=== PATIENT | female | born 1990 | race Caucasian/White ===

== ENCOUNTER 2020-08-11 09:41 | Outpatient (CLI) | payer SELFPAY ==
--- NOTE | 2020-08-11 10:09 | XRAY Report ---
PROCEDURE: Ankle 3 View LT INDICATIONS: LEFT FOOT/ANKLE PAIN TECHNIQUE: 3 views of the ankle were acquired. COMPARISON: None FINDINGS: Bones: No fractures or dislocations. Ankle mortise is normally aligned. No suspicious bony lesions . Soft tissues: No tibiotalar joint effusion. Achilles tendon appears normal. IMPRESSION: No evidence acute bony abnormality of the left ankle. Reviewed by: Kory Pino MD on 08/11/2020 10:08 AM PDT Approved by: Kory Pino MD on 08/11/2020 10:08 AM PDT Station ID: [id number]
--- NOTE | 2020-08-11 10:10 | XRAY Report ---
PROCEDURE: Foot 3 View LT INDICATIONS: LEFT FOOT/ANKLE PAIN TECHNIQUE: 3 views of the foot were acquired. COMPARISON: None FINDINGS: Bones: Mild hallux valgus and bunion. No fractures or dislocations. No suspicious bony lesions. Soft tissues: No tibiotalar joint effusion. Achilles tendon appears normal. IMPRESSION: Mild hallux valgus and bunion. No evidence of acute bony abnormality of the left foot. Reviewed by: Kory Pino MD on 08/11/2020 10:09 AM PDT Approved by: Kory Pino MD on 08/11/2020 10:09 AM PDT Station ID: [id number]
== END 2020-08-11 09:42 | disposition home or self-care (01) ==
LOC: DI.S 09:41
PROVIDERS: ATTEND Physician Assistant Medical
DX: M20.12 Hallux valgus (acquired), left foot (principal); M21.612 Bunion of left foot

== ENCOUNTER 2021-07-21 13:44 | Emergency (ER) | payer MEDICAID ==
[2021-07-21 14:23] LABS: BASOPHILS % (AUTO) 0.8 %; EOSINOPHILS % (AUTO) 0.8 %; HCT - HEMATOCRIT 44.9 % (37.0-47.0); HGB - HEMOGLOBIN 15.3 g/dL (12.0-16.0); LYMPHOCYTES # (AUTO) 0.6 10^3/uL (1.5-3.5); LYMPHOCYTES % (AUTO) 15.5 %; MEAN CORPUSCULAR HEMOGLOBIN 31.9 pg (27.0-31.0); MEAN CORPUSCULAR HGB CONC 34.1 g/dL (32.0-36.0); MEAN CORPUSCULAR VOLUME 93.5 fL (81.0-99.0); MEAN PLATELET VOLUME 10.2 fL (7.9-10.8); MONOCYTES # (AUTO) 0.3 10^3/uL (0.0-1.0); MONOCYTES % (AUTO) 8.1 %; NEUTROPHILS # (AUTO) 2.9 10^3/uL (1.5-6.6); NEUTROPHILS % (AUTO) 74.5 %; PLT - PLATELET COUNT 277 10^3/uL (130-450); RED CELL DISTRIBUTION WIDTH 11.4 % (12.0-15.0); WHITE BLOOD COUNT 3.9 x10^3/uL (4.8-10.8)
[2021-07-21 14:36] LABS: ALBUMIN 3.9 g/dL (3.2-5.5); ALBUMIN/GLOBULIN RATIO 1.1 (1.0-2.2); BILIRUBIN,TOTAL 0.2 mg/dL (0.2-1.0); CALCIUM 8.8 mg/dL (8.5-10.3); CREATININE 0.6 mg/dL (0.4-1.0); POTASSIUM 3.1 mmol/L (3.5-5.0); TOTAL PROTEIN 7.3 g/dL (6.7-8.2)
--- NOTE | 2021-07-21 15:06 | ED Physician Documentation ---
PD HPI NVD - Stated complaint Stated Complaint: VOMITING,DIARRHEA +PREG - Chief complaint Chief Complaint: Abd Pain - History obtained from History obtained from: Patient - History of Present Illness Timing - onset: Today (Onset of last evening of nausea and vomiting with subsequent copious watery diarrhea. Denies blood in her vomit nor stool. Feeling weak and lightheaded today. She is 12 weeks . Denies vaginal bleeding. Mild lower abdominal cramping.), Last night Timing - duration: Days (1) Timing - details: Abrupt onset, Still present Associated symptoms: Abdominal pain (mild upper abd cramping.), Loss of appetite. No: Fever, Near syncope / syncope (but feeling lightheaded.) Contributing factors: Sick contact (Her daughter had some nausea and vomiting mildly 4 to 5 days ago and is better after day.), Other (She did home COVID rapid antigen test that was negative.). No: Bad food Improved by: No: Vomiting Worsened by: Eating Similar symptoms before: Has not had sx before Recently seen: Not recently seen Review of Systems Constitutional: reports: Myalgias. denies: Fever, Chills Nose: denies: Rhinorrhea / runny nose, Congestion Throat: denies: Sore throat Respiratory: denies: Cough : denies: Dysuria, Discharge, Vaginal bleeding PD PAST MEDICAL HISTORY - Past Medical History Cardiovascular: None Respiratory: None [employer]: Other (12 weeks ) - Past Surgical History Past Surgical History: No - Present Medications Home Medications: Ambulatory Orders Medication Instructions Recorded Confirmed Loperamide HCl [Imodium A-D] 2 mg PO QID PRN #12 tablet 07/21/21 Ondansetron Odt [Zofran] 4 mg TL Q6H PRN #15 tablet 07/21/21 - Allergies Allergies/Adverse Reactions: Allergies Allergy/AdvReac Type Severity Reaction Status Date / Time Penicillins Allergy Intermediate Edema Verified 07/21/21 14:10 - Social History Does the pt smoke?: No Smoking Status: Never smoker Does the pt drink ETOH?: Yes Does the pt have substance abuse?: No - Immunizations Immunizations are current?: No - POLST Patient has POLST: No PD ED PE NORMAL - Vitals Vital signs reviewed: Yes - General General: Alert and oriented X 3, Well developed/nourished - HEENT HEENT: Pharynx benign. No: Moist mucous membranes - Neck Neck: Supple, no meningeal sign, No adenopathy - Cardiac Cardiac: RRR, No murmur - Respiratory Respiratory: Clear bilaterally - Abdomen Abdomen: Normal bowel sounds, Soft, Non distended, No organomegaly, Other (Mild periumbilical to upper mid abdomen tenderness without any percussion or rebound tenderness.) Results - Vitals Vitals: Vital Signs - 24 hr 07/21/21 07/21/21 07/21/21 14:10 16:12 18:00 Temperature 37.1 C Heart Rate 107 H 84 99 Respiratory 19 19 18 Rate Blood Pressure 123/67 116/76 110/67 O2 Saturation 97 100 100 Oxygen O2 Source Room air - Labs Labs: Laboratory Tests 07/21/21 07/21/21 07/21/21 14:18 14:18 14:26 WBC 3.9 L RBC 4.80 Hgb 15.3 Hct 44.9 MCV 93.5 MCH 31.9 H MCHC 34.1 RDW 11.4 L Plt Count 277 MPV 10.2 Neut # (Auto) 2.9 Lymph # (Auto) 0.6 L [place] # (Auto) 0.3 Eos # (Auto) 0.0 Baso # (Auto) 0.0 Absolute Nucleated RBC 0.00 Nucleated RBC % 0.0 Sodium 136 Potassium 3.1 L Chloride 103 Carbon Dioxide 22 Anion Gap 11.0 BUN 6 Creatinine 0.6 Estimated GFR (MDRD) 118 Glucose 100 Calcium 8.8 Total Bilirubin 0.2 AST 33 ALT 27 Alkaline Phosphatase 40 L Total Protein 7.3 Albumin 3.9 Globulin 3.4 Albumin/Globulin Ratio 1.1 Lipase 32 Urine Color YELLOW Urine Clarity CLEAR Urine pH 6.0 Ur Specific [place] >=1.030 H Urine Protein NEGATIVE Urine Glucose (UA) NEGATIVE Urine Ketones 15 H Urine Occult Blood NEGATIVE Urine Nitrite NEGATIVE Urine Bilirubin NEGATIVE Urine Urobilinogen 0.2 (NORMAL) Ur Leukocyte Esterase NEGATIVE Ur Microscopic Review NOT INDICATED Urine Culture Comments NOT INDICATED Urine HCG, Qual POSITIVE PD MEDICAL DECISION MAKING - ED course Complexity details: reviewed results (Bedside ultrasound showed normal with heart motion and movement. Amniotic fluid volume appeared appropriate. Brief look at gallbladder appeared normal as well without any stones or wall thickening.), re-evaluated patient (feeling improved and able to take fluids/crackers. She does not hae nausea now. No cramps/bleeding. ), considered differential, d/w patient Departure - Departure Disposition: 01 Home, Self Care Clinical Impression: Nausea vomiting and diarrhea, Dehydration Qualifiers: Weeks of gestation: 12 weeks Qualified Code(s): Z3A.12 - 12 weeks gestation of Condition: Stable Record reviewed to determine appropriate education?: Yes Instructions: ED Gastroenteritis Viral Follow-Up: Dottie Butterfield MD [Primary Care Provider] - Prescriptions: Loperamide HCl [Imodium A-D] 2 mg PO QID PRN #12 tablet PRN Reason: Diarrhea Ondansetron Odt [Zofran] 4 mg TL Q6H PRN #15 tablet PRN Reason: Nausea / Vomiting Comments: Small frequent fluids. [place] food initially. Progress as tolerated. I presume this is a viral gastroenteritis and would last just a couple of days. You have received IV fluids here to try to rehydrate you. We can continue with the ondansetron every 4-6 hours if needed for nausea. For a limited time can also use Imodium 4 times a day if needed for the diarrhea. Add Tylenol every 4-6 hours if needed for cramps or pains. Your bedside ultrasound showed a normal-appearing fetus with good to heart activity and movement. Recheck if any unusual pains vaginal bleeding or other concerns. Recheck if not improved well over the next day or 2. Return if worse. I transmitted your prescriptions to [facility] in [place]. Discharge Date/Time: 07/21/21 18:38
[2021-07-21 15:26] LABS: BILIRUBIN,URINE NEGATIVE (NEGATIVE); GLUCOSE, URINE (UA) NEGATIVE (NEGATIVE); KETONES,URINE (UA) 15 mg/dL (NEGATIVE); LEUKOCYTE ESTERASE, URINE NEGATIVE (NEGATIVE); NITRITE,URINE NEGATIVE (NEGATIVE); OCCULT BLOOD,URINE NEGATIVE (NEGATIVE); PROTEIN,URINE NEGATIVE (NEGATIVE); UROBILINOGEN,URINE 0.2 (NORMAL) E.U./dL (NORMAL)
[2021-07-21 15:29] LABS: CLARITY,URINE CLEAR (CLEAR)
[2021-07-21] MEDS ORDERED: KETOROLAC 15 MG/ML VIAL IVP STA (15:29)
[2021-07-21] MEDS ORDERED: ONDANSETRON 4 MG/2 ML VIAL IVP STA (15:29)
[2021-07-21] MEDS ORDERED: SODIUM CHLORIDE 0.9% 1,000 ML IV STA (15:29)
[2021-07-21] MEDS ORDERED: LOPERAMIDE 2 MG CAPSULE PO STA (15:29)
[2021-07-21 15:30] LABS: HCG UR QUAL POSITIVE
[2021-07-21] MEDS ORDERED: LACTATED RINGERS 1,000 ML IV STA (15:30)
[2021-07-21 18:14] VITALS: BP 110/67
[2021-07-21] MEDS ORDERED: ONDANSETRON ODT 4 MG Prepack 2 TL PRN (18:28)
== END 2021-07-21 18:38 | disposition home or self-care (01) ==
LOC: ED 13:44
DX: O26.891 Other specified pregnancy related conditions, first trimester (principal); R11.2 Nausea with vomiting, unspecified; R19.7 Diarrhea, unspecified; O99.281 Endocrine, nutritional and metabolic diseases complicating pregnancy, first trimester; E86.0 Dehydration; Z3A.12 12 weeks gestation of pregnancy
CPT/HCPCS: 36415; 80053; 81003; 81025; 83690; 85025; 96361; 96374; 99282; 99283; A9270; J7120; 81001; 87086

== ENCOUNTER 2021-12-08 18:17 | Emergency (ER) | payer MEDICAID ==
--- OUTSIDE RECORDS SUMMARY | 2021-12-08 18:23 | EXTERNAL MEDICAL SUMMARY RPT | Continuity of Care Document ---
:1990 Author Organization [facility] Address [address] [place] [address] Phone Allergies No information. Encounters No information. Functional Status No information. Immunizations No information. Medications No information. Problems No information. Procedures No information. Results/Labs test date author facility value unit interpret ation Result panel 1 (unknown) (no (unknown) (unknown) (no value) (units (unk nown) date) unknown) (unknown) (no (unknown) (unknown) [address] [place] [address] (units (unknown) date) unknown) (unknown) (no (unknown) (unknown) [place], [place] (units ( unknown) date) [id number] unknown) (unknown) (no (unknown) (unknown) [facility] (units (unknown) date) unknown) (unknown) (no (unknown) (unknown) Signed (units (unkno wn) date) unknown) (unknown) (no (unknown) (unknown) Ultrasound (units (unk nown) date) Report unknown) (unknown) (no (unknown) (unknown) (no value) (units (unk nown) date) unknown) (unknown) (no (unknown) (unknown) 09/26/21 (units (unkno wn) date) unknown) (unknown) (no (unknown) (unknown) 7 mm in 3rd (units (un known) date) trimester. unknown) (unknown) (no (unknown) (unknown) Abdominal (units (unkn own) date) circumference: unknown) 15.9 cm (unknown) (no (unknown) (unknown) Amniotic fluid (units (unknown) date) index: 14.9 cm, unknown) normal range is 5-24 cm. (unknown) (no (unknown) (unknown) Anatomic survey: (units (unknown) date) 396g unknown) (unknown) (no (unknown) (unknown) Approved by: (units (u nknown) date) Wellington Barrios M.D. unknown) on 09/26/2021 at 15:06 (unknown) (no (unknown) (unknown) Biparietal (units (unk nown) date) diameter: 4.6cm unknown) (unknown) (no (unknown) (unknown) Bladder: Normal (units (unknown) date) in size. unknown) (unknown) (no (unknown) (unknown) COMPARISON: (units (un known) date) None. unknown) (unknown) (no (unknown) (unknown) Cord: 3-vessel (units (unknown) date) cord has unknown) orthotopic insertion. (unknown) (no (unknown) (unknown) Diaphragm: (units (unk nown) date) Diaphragm is unknown) intact. (unknown) (no (unknown) (unknown) Dictated by: (units (u nown) date) Wellington Barrios M.D. unknown) on 09/26/2021 at 14:58 (unknown) (no (unknown) (unknown) Endovaginal (units (un known) date) scanning: not unknown) performed (unknown) (no (unknown) (unknown) Estimated date (units (unknown) date) of delivery (RAINA) unknown) from first dating scan (this study): 02/08/2022 (unknown) (no (unknown) (unknown) Estimated (units (unknown) date) weight and unknown) percentile: 396g (unknown) (no (unknown) (unknown) Extremities: All (units (unknown) date) 4 extremities unknown) identified. (unknown) (no (unknown) (unknown) FINDINGS: (units (unkn own) date) unknown) (unknown) (no (unknown) (unknown) Face: Nose and (units (unknown) date) lips, facial unknown) profile are normal. (unknown) (no (unknown) (unknown) Femur length: (units ( unknown) date) 3.0 cm unknown) (unknown) (no (unknown) (unknown) (units (unkno wn) date) biometrics: unknown) (unknown) (no (unknown) (unknown) heart (units (un known) date) rate: 162 beats unknown) per minute. (unknown) (no (unknown) (unknown) General: A (units (unk nown) date) single living unknown) intrauterine gestation is present. (unknown) (no (unknown) (unknown) Head (units (unkno wn) date) circumference: unknown) 13.1 cm (unknown) (no (unknown) (unknown) Heart: (units (unkno wn) date) 4-chambered heart unknown) is present, with normal ventricular outflow tracts. (unknown) (no (unknown) (unknown) IMPRESSION: (units (un known) date) Intrauterine unknown) living gestation identified at 20 weeks and 5 days (unknown) (no (unknown) (unknown) INDICATIONS: (units (u nknown) date) ANATOMY SCAN unknown) (unknown) (no (unknown) (unknown) Kidneys: No (units (un known) date) unknown) hydronephrosis. Normal is less than 5 mm in 2nd trimester, (unknown) (no (unknown) (unknown) LMP unknown (units (un known) date) unknown) (unknown) (no (unknown) (unknown) Maternal (units (unkno wn) date) cervical canal: unknown) 4.9cm long. Normal lower limit is 2.5 cm. (unknown) (no (unknown) (unknown) Neuro: (units (unkno wn) date) Ventricles are unknown) non-dilated at less than 10 mm. Cisterna magna is (unknown) (no (unknown) (unknown) Nuchal skin (units (un known) date) fold: Normal at unknown) less than 6 mm between 14-21 weeks gestational (unknown) (no (unknown) (unknown) OUTSIDE/PRIOR (units ( unknown) date) DATING DATA: unknown) (unknown) (no (unknown) (unknown) Placenta: (units (unkn own) date) Placental unknown) position is posterior , without previa (unknown) (no (unknown) (unknown) Presentation: (units ( unknown) date) vertex unknown) (unknown) (no (unknown) (unknown) Real-time (units (unkn own) date) scanning was unknown) performed of the fetus, with image documentation and (unknown) (no (unknown) (unknown) Spine: No (units (unkn own) date) evidence for unknown) spina bifida. (unknown) (no (unknown) (unknown) Stomach: (units (unkno wn) date) Left-sided unknown) stomach is present. (unknown) (no (unknown) (unknown) TECHNIQUE: (units (unk nown) date) unknown) (unknown) (no (unknown) (unknown) estimated (units (unkn own) date) gestational age: unknown) 20 weeks and 5 days. (unknown) (no (unknown) (unknown) measurements. (units ( unknown) date) unknown) (unknown) (no (unknown) (unknown) mm. Cerebellum (units (unknown) date) is normal in size unknown) and morphology. (unknown) (no (unknown) (unknown) this ultrasound (units (unknown) date) biometry. Routine unknown) anatomic survey is normal. (unknown) (no (unknown) (unknown) [id number] (units (unkno wn) date) unknown) (unknown) (no (unknown) (unknown) Accession (units (unkn own) date) Number: unknown) [id number] (unknown) (no (unknown) (unknown) Age/Sex: 31 / F (units (unknown) date) Date of Service: unknown) (unknown) (no (unknown) (unknown) : 1990 (units (unknown) date) Acct:[id number] unknown) (unknown) (no (unknown) (unknown) Loc: [place]units (unkno wn) date) unknown) (unknown) (no (unknown) (unknown) Ordering (units (unkno wn) date) Provider: unknown) Aurora Enciso (unknown) (no (unknown) (unknown) PROCEDURE: US OB (units (unknown) date) >= 14 WEEKS FETUS unknown) (unknown) (no (unknown) (unknown) Patient: (units (unkno wn) date) Barry Aguilar unknown) MR#: [id number] (unknown) (no (unknown) (unknown) Procedure: US OB (units (unknown) date) >= 14 weeks Fetus unknown) (unknown) (no (unknown) (unknown) age. (units (unkno wn) date) unknown) (unknown) (no (unknown) (unknown) based on (units (unkno wn) date) unknown) (unknown) (no (unknown) (unknown) biometric (units (unkn own) date) unknown) (unknown) (no (unknown) (unknown) less than (units (unkn own) date) unknown) (unknown) (no (unknown) (unknown) normal at 3-11 (units (unknown) date) unknown) Social History No information. Vital Signs No information.
--- NOTE | 2021-12-08 20:17 | ED Physician Documentation ---
PD HPI DYSPNEA - Stated complaint Stated Complaint: SOA/32WKS - Chief complaint Chief Complaint: Resp - History obtained from History obtained from: Patient - History of Present Illness Timing - onset: How many days ago (3) Timing - details: Gradual onset Pain level now: 0 Associated symptoms: No: Fever (Tmax 99.8) Recently seen: Not recently seen - Additional information Additional information: chief complaint of dyspnea. She says she has a "head cold" (per patient) with sore throat, generalized myalgias and malaise. Sinus congestion although this has been improving. Symptom onset 3 days ago. Patient is 32 weeks , . Tmax 99.8. she has taken multiple COVID tests at home , results have been negative. She has has seasonal allergies for which she uses albuterol MDI, but only occasionally for a few weeks /months of the year. Review of Systems Constitutional: denies: Fever (Tmax 99.8), Chills, Sweats Throat: reports: Sore throat Cardiac: denies: Chest pain / pressure Respiratory: reports: Dyspnea, Cough, Wheezing. denies: Hemoptysis GI: reports: Reviewed and negative : reports: Now EGMonster (32 weeks). denies: Dysuria, Frequency PD PAST MEDICAL HISTORY - Past Medical History Past Medical History: Yes Cardiovascular: None Respiratory: Asthma, Pneumonia, Other UNHAIRER: Other Other Past Medical History: bronchitis - Past Surgical History Past Surgical History: No - Present Medications Home Medications: Ambulatory Orders Medication Instructions Recorded Confirmed Loperamide HCl [Imodium A-D] 2 mg PO QID PRN #12 tablet 07/21/21 Ondansetron Odt [Zofran] 4 mg TL Q6H PRN #15 tablet 07/21/21 Albuterol Sulf [Ventolin Hfa 1 - 2 puffs INH Q4HR PRN #1 each 12/08/21 Inhaler] Azithromycin See Taper PO DAILY #6 tablet 12/08/21 predniSONE [Deltasone] 40 mg PO DAILY 4 Days #8 tablet 12/08/21 - Allergies Allergies/Adverse Reactions: Allergies Allergy/AdvReac Type Severity Reaction Status Date / Time Penicillins Allergy Intermediate Edema Verified 12/08/21 18:31 - Social History Does the pt smoke?: No Smoking Status: Never smoker Does the pt drink ETOH?: Yes Does the pt have substance abuse?: No - Immunizations Immunizations are current?: No - POLST Patient has POLST: No PD ED PE NORMAL - Vitals Vital signs reviewed: Yes - General General: Alert and oriented X 3, No acute distress, Well developed/nourished - HEENT HEENT: Pharynx benign - Neck Neck: Supple, no meningeal sign - Cardiac Cardiac: RRR, No murmur - Respiratory Respiratory: No respiratory distress - Abdomen Abdomen: Soft, Non tender PD ED PE EXPANDED - Respiratory Respiratory: Wheezing (expiratory wheezing all lung maher) Results - Vitals Vitals: Oxygen O2 Source Room air - EKG (time done) No standard instances Rate: Rate (enter#) (99) Rhythm: NSR [place]: Normal Intervals: Normal [place] QRS: Normal Ischemia: Normal ST segments, T wave inversion (II, III, aVF), Other (flat T V3- V6) PD MEDICAL DECISION MAKING - ED course Complexity details: re-evaluated patient, considered differential, d/w patient ED course: given duoneb and reports feeling much improved with this. On reexam she has residual end-expiratory wheezing. Prescriptions submitted to her pharmacy of choice for albuterol MDI as well as prednisone and zithromax. We discussed the latter two medications, including option for starting these in ED but patient prefers to use the prednisone only if she is not responding adequately to the albuterol MDI. She is encouraged to return if worse, but should she develop increasing productive cough or develop fever 100.4 or higher, she has the option of starting the azithromycin Departure - Departure Disposition: 01 Home, Self Care Clinical Impression: Bronchitis with bronchospasm Condition: Good Instructions: ED Bronchitis Asthmatic Follow-Up: Dottie Butterfield MD [Primary Care Provider] - Prescriptions: Albuterol Sulf [Ventolin Hfa Inhaler] 1 - 2 puffs INH Q4HR PRN #1 each PRN Reason: Shortness Of Air/Wheezing Azithromycin See Taper PO DAILY #6 tablet predniSONE [Deltasone] 40 mg PO DAILY 4 Days #8 tablet Comments: Prescriptions have been electronically submitted to [facility] in [place]. Albuterol inhaler to be used every four hours as needed for difficulty breathing. I also prescribed an antibiotic. As we discussed, you can start the antibiotic if your symptoms worsen and/or if you develop a fever of 100.4 or higher. I also prescribed a steroid (prednisone), which you can start and take as prescribed if your symptoms worsen and not responding to the inhaler alone. Discharge Date/Time: 12/08/21 22:49
[2021-12-08] MEDS ORDERED: IPRATROPIUM/ALBUTEROL 3 ML NEB INH STA (20:55)
[2021-12-08 22:49] VITALS: BP 109/62
== END 2021-12-08 22:49 | disposition home or self-care (01) ==
LOC: ED 18:17
DX: O99.513 Diseases of the respiratory system complicating pregnancy, third trimester (principal); J20.9 Acute bronchitis, unspecified; Z3A.32 32 weeks gestation of pregnancy
CPT/HCPCS: 93005; 99283

== ENCOUNTER 2022-02-08 06:58 | Inpatient (IN) | payer MEDICAID ==
[2022-02-08] MEDS ORDERED: CARBOPROST TROMETHAMINE 250 MCG/ML AMP IM PRN (07:32)
[2022-02-08] MEDS ORDERED: TERBUTALINE 1 MG/ML VIAL SUBQ PRN (07:32)
[2022-02-08] MEDS ORDERED: NIFEdipine 10 MG CAPSULE PO PRN (07:32)
[2022-02-08] MEDS ORDERED: OXYTOCIN 10 UNIT/ML VIAL IM PRN (07:32)
[2022-02-08] MEDS ORDERED: METHYLERGONOVINE 0.2 MG/ML VIAL IM PRN (07:32)
[2022-02-08] MEDS ORDERED: miSOPROStoL 200 MCG TABLET BC PRN (07:32)
[2022-02-08] MEDS ORDERED: hydrALAZINE INJ 20 MG/ML VIAL IVP PRN ×2 (07:32)
[2022-02-08] MEDS ORDERED: TRANEXAMIC ACID IN NACL 1,000 MG/100 ML BAG IV PRN (07:32)
[2022-02-08] MEDS ORDERED: lidocaine 1% 20 ML MDV ID PRN (07:32)
[2022-02-08] MEDS ORDERED: OXYTOCIN/SODIUM CHLORIDE 500 ML IV PRN (07:32)
[2022-02-08] MEDS ORDERED: SODIUM CHLORIDE FLUSH 0.9% 10 ML SYRINGE IVP PRN (07:32)
[2022-02-08] MEDS ORDERED: fentaNYL 100 MCG/2 ML VIAL IVP PRN (07:32)
[2022-02-08] MEDS ORDERED: miSOPROStoL 200 MCG TABLET PR PRN (07:32)
[2022-02-08] MEDS ORDERED: LABETALOL 20 MG/4 ML SYRINGE IVP PRN ×3 (07:32)
[2022-02-08 07:53] LABS: BASOPHILS % (AUTO) 0.2 %; EOSINOPHILS # (AUTO) 0.2 10^3/uL (0.0-0.7); EOSINOPHILS % (AUTO) 1.5 %; HCT - HEMATOCRIT 34.7 % (37.0-47.0); HGB - HEMOGLOBIN 11.4 g/dL (12.0-16.0); LYMPHOCYTES # (AUTO) 1.8 10^3/uL (1.5-3.5); LYMPHOCYTES % (AUTO) 17.4 %; MEAN CORPUSCULAR HEMOGLOBIN 29.3 pg (27.0-31.0); MEAN CORPUSCULAR HGB CONC 32.9 g/dL (32.0-36.0); MEAN CORPUSCULAR VOLUME 89.2 fL (81.0-99.0); MEAN PLATELET VOLUME 12.5 fL (7.9-10.8); MONOCYTES # (AUTO) 0.5 10^3/uL (0.0-1.0); MONOCYTES % (AUTO) 5.1 %; NEUTROPHILS # (AUTO) 7.6 10^3/uL (1.5-6.6); NEUTROPHILS % (AUTO) 75.2 %; PLT - PLATELET COUNT 247 10^3/uL (130-450); RED BLOOD COUNT 3.89 10^6/uL (4.20-5.40); RED CELL DISTRIBUTION WIDTH 12.5 % (12.0-15.0); WHITE BLOOD COUNT 10.1 x10^3/uL (4.8-10.8)
[2022-02-08] MEDS ORDERED: SODIUM CHLORIDE FLUSH 0.9% 10 ML SYRINGE IVP SCH (08:00)
[2022-02-08] MEDS ORDERED: LACTATED RINGERS 1,000 ML IV SCH (08:00)
[2022-02-08] MEDS ORDERED: ROPIVACAINE 0.2% 200 MG/100 ML BAG EP ONE (08:46)
--- NOTE | 2022-02-08 08:47 | ANESTHESIA ---
Pre-Anesthesia VS, & Labs - Diagnosis request for labor analgesia - Procedure labor epidural Vital Signs: Temp Pulse Resp BP Pulse Ox O2 Flow Rate 36.7 C 78 17 125/79 100 02/08/22 07:53 02/08/22 07:14 02/08/22 07:14 02/08/22 07:14 02/08/22 07:14 Height: 5 ft 5 in Weight (kg): 75.57 kg Body Mass Index: 27.7 BMI Classification: Overweight - NPO Other - Is Patient ?: Yes - Lab Results Current Lab Results: Laboratory Tests 02/08/22 08:06: Blood Type A POSITIVE 02/08/22 07:45: Blood Type Recheck A POSITIVE 02/08/22 07:45: WBC 10.1, RBC 3.89 L, Hgb 11.4 L, Hct 34.7 L, MCV 89.2, MCH 29.3, MCHC 32.9, RDW 12.5, Plt Count 247, MPV 12.5 H, Neut # (Auto) 7.6 H, Lymph # (Auto) 1.8, [place] # (Auto) 0.5, Eos # (Auto) 0.2, Baso # (Auto) 0.0, Absolute Nucleated RBC 0.00, Nucleated RBC % 0.0 02/08/22 07:45: Blood Type Cancelled, Antibody Screen Cancelled Fish Bones: 02/08/22 07:45 Home Medications and Allergies Active Medications Carboprost Tromethamine (Carboprost Tromethamine 250 Mcg/Ml Amp) 250 mcg IM .ONCE PRN PRN Reason: Hemorrhage Fentanyl (Fentanyl 100 Mcg/2 Ml Vial) 50 mcg IVP Q1H PRN PRN Reason: Severe Pain (score 7-10) Hydralazine HCl (Hydralazine Inj 20 Mg/Ml Vial) 5 - 10 mg IVP Q20M PRN; Protocol PRN Reason: SBP> or= 160 OR DBP> or= 110 Hydralazine HCl (Hydralazine Inj 20 Mg/Ml Vial) 10 mg IVP .ONCE PRN; Protocol PRN Reason: SBP> or= 160 OR DBP> or= 110 Oxytocin/Sodium Chloride (Pitocin/Sodium Chloride) 500 mls @ 999 mls/hr IV PRN PRN; Protocol PRN Reason: POST- HEMORR PREVENTION Tranexamic Acid (Tranexamic 1,000 Mg/100ml-Nacl) 1,000 mg in 100 mls @ 600 mls/hr IV Q30M PRN PRN Reason: EBL >1200mL and within 3hr Lactated Ringer's (Lr) 1,000 mls @ 125 mls/hr IV .Q8H [facility] Last Admin: 02/08/22 07:48 Dose: 125 mls/hr Labetalol HCl (Labetalol 20 Mg/4 Ml Syringe) 20 - 80 mg IVP Q10M PRN; Protocol PRN Reason: SBP> or= 160 OR DBP> or= 110 Labetalol HCl (Labetalol 20 Mg/4 Ml Syringe) 20 mg IVP .ONCE PRN; Protocol PRN Reason: SBP> or= 160 OR DBP> or= 110 Labetalol HCl (Labetalol 20 Mg/4 Ml Syringe) 20 - 40 mg IVP Q10M PRN; Protocol PRN Reason: SBP> or= 160 OR DBP> or= 110 Lidocaine HCl (Lidocaine 1% 20 Ml Mdv) 20 ml ID .ONCE PRN PRN Reason: PERINEAL REPAIR Stop: 02/11/22 07:33 Methylergonovine Maleate (Methylergonovine 0.2 Mg/Ml Vial) 0.2 mg IM .ONCE PRN PRN Reason: Hemorrhage Misoprostol (Misoprostol 200 Mcg Tablet) 600 mcg BC .ONCE PRN PRN Reason: Hemorrhage Misoprostol (Misoprostol 200 Mcg Tablet) 800 mcg NV .ONCE PRN PRN Reason: Hemorrhage Nifedipine (Nifedipine 10 Mg Capsule) 10 - 20 mg PO Q20M PRN; Protocol PRN Reason: SBP> or= 160 OR DBP> or= 110 Oxytocin (Oxytocin 10 Unit/Ml Vial) 10 unit IM .ONCE PRN PRN Reason: Step One if no IV access. Sodium Chloride (Sodium Chloride Flush 0.9% 10 Ml Syringe) 10 ml IVP PRN PRN PRN Reason: NEEDED PER PROVIDER ORDERS Sodium Chloride (Sodium Chloride Flush 0.9% 10 Ml Syringe) 10 ml IVP Q8H [facility] Last Admin: 02/08/22 07:48 Dose: 10 ml Terbutaline Sulfate (Terbutaline 1 Mg/Ml Vial) 0.25 mg SUBQ .ONCE PRN PRN Reason: Tachystole Allergies/Adverse Reactions: Allergies Allergy/AdvReac Type Severity Reaction Status Date / Time Penicillins Allergy Intermediate Edema Verified 12/08/21 18:31 Anes History & Medical History - Anesthetic History Anesthesia Complications: reports: No previous complications Family history of Anesthesia Complications: Denies Family history of Malignant Hyperthermia: Denies - Medical History Cardiovascular: reports: None Pulmonary: reports: Asthma, Pneumonia, Other Smoking Status: Never smoker Exam General: Alert, Oriented x3, Cooperative, No acute distress Dental: WNL Mouth Openin Fingerbreadth Neck Mobility: Normal Mallampati classification: II Thyromental Distance: 4-6 cm Cardiovascular: Regular rate Mental/Cognitive Status: Alert/Oriented X3, Normal for patient Cognitive Status: Within normal limits Plan Anesthesia Type: Epidural Consent for Procedure(s) Verified and Reviewed: Yes Code Status: Attempt Resuscitation ASA classification: 2-Mild systemic disease Is this case an emergency?: No
--- NOTE | 2022-02-08 09:51 | HISTORY & PHYSICAL EXAMINATION ---
Admit History - Visit Reason Visit Reason: Contractions, Bloody show - : 4 Parity: 1 Premature: 0 Ectopic: 0 : 2 Care: positive: [facility] Risk/History: positive: None Complications This : positive: None Smoking Status: Former smoker - Mother's Labs Mother's Blood Type: positive: A Mother's RH: positive: Positive GBS: positive: Group B Step Negative Rubella Status: positive: Immune Meds/Allgy - Home Medications Home Medications: Ambulatory Orders Medication Instructions Recorded Confirmed Loperamide HCl [Imodium A-D] 2 mg PO QID PRN #12 tablet 07/21/21 Ondansetron Odt [Zofran] 4 mg TL Q6H PRN #15 tablet 07/21/21 Albuterol Sulf [Ventolin Hfa 1 - 2 puffs INH Q4HR PRN #1 each 12/08/21 Inhaler] Azithromycin See Taper PO DAILY #6 tablet 12/08/21 predniSONE [Deltasone] 40 mg PO DAILY 4 Days #8 tablet 12/08/21 - Allergies Allergies/Adverse Reactions: Allergies Allergy/AdvReac Type Severity Reaction Status Date / Time Penicillins Allergy Intermediate Edema Verified 12/08/21 18:31 Review of Systems - Constitutional Constitutional: denies: Fatigue, Fever, Chills, Malaise - Eyes Eyes: denies: Blurred vision, Spots in vision, Dipolpia - Cardiovascular Cariovascular: denies: Irregular heart rate, Palpitations, Chest pain, Edema - Respiratory Respiratory: denies: Cough, Wheezing, SOB at rest - Gastrointestinal Gastrointestinal: denies: Constipation, Diarrhea, Nausea, Vomiting - Genitourinary Genitourinary: denies: Dysuria - Integumentary Integumentary: denies: Rash, Pruritis - Neurological Neurological: denies: Headache Physical - Abdominal Exam Vital Signs: Temp Pulse Resp BP Pulse Ox O2 Flow Rate 36.7 C 78 17 125/79 100 02/08/22 07:53 02/08/22 07:14 02/08/22 07:14 02/08/22 07:14 02/08/22 07:14 Contraction Frequency (min/apart): 10 Contraction Intensity: positive: Mild to moderate Uterine Resting Tone: positive: Soft - Monitoring Heart Rate Baseline: 150 Strip Review: positive: Category I - Presentation Presentation: positive: Vertex - Vaginal Exam Membranes: positive: Membranes intact Dilation (in cm): 6 Effacement (%): 90 Station: positive: -1 Cervical Position: positive: Posterior - Speculum Exam Speculum Exam Performed: positive: No Plan for Labor - Plan For Labor I expect patient to be DC'd or transferred within 96 hours.: Yes Plan for Labor: HPI: This 31yo @ 39.6wks gestation by 9.5wk U/S presents to [facility] with complaints of contractions which have been intermittent in frequency however have progressively increased in intensity and duration throughout the night. She reports bloody show early this morning and feels she has been experiencing leaking for the past several hours but is unsure. Upon arrival her cervical exam was difficult secondary to discomfort. Her last SVE 48 hours ago was 3-4/80/-2 in the office. She is requesting an epidural for pain management and will be admitted to [facility]. She has been a patient of [facility] for the duration of her which has remained uncomplicated. Of note she did not complete her glucola at 28 weeks. She has otherwise received consistent and adequate care for the duration of her . Dating Criteria: LMP unknown Initial U/S @ 9.5wks dates Serial exams - agree Medical Hx: no significant Surgical Hx: none Family Hx: HTN, thyroid disease, cancer, stroke Meds: PNV, Unisom PRN Allergies: Penicillin Social: Not , lives with partner. 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 No tobacco, ETOH or recreational drug use. Caffeine intake - moderate. course: A positive, antibody negative Rubella immune; varicella immune Initial U/S @ 9.5wks dates Genetic screening - declined FAS WNL. Anterior placenta, no previa. Size c/w dating. 3VC. Glucola - declined Tdap - declined (desires ) COVID-19 vaccine - declined Influenza vaccine - declined GBS negative Physical Exam: Normocephalic, atraumatic Heart RRR w/o M/G/R Lungs CTAB Abdomen gravid, soft, nontender EFW 3400g FHR baseline 150s, moderate variability, + accels, no decels Contractions palpate mild to moderate inconsistently with soft resting tone SVE 6/90/-1, posterior, soft. Vertex AROM noted to be a small amount of clear fluid Bilateral LEs no edema. Mood is good. Assessment: 31yo @ 39.6wks gestation by 9.5wk U/S Active labor GBS neg FHR Category I Plan: Epidural per maternal request. Continuous monitoring. Initiate pitocin with titration per protocol if contractions do not develop a regular pattern over the next 30 minutes. Anticipate .
[2022-02-08] MEDS ORDERED: ROPIVACAINE 0.2% PF 10 ML VIAL ONE (10:55)
[2022-02-08] MEDS ORDERED: WITCH HAZEL/GLYCERIN 1 PAD TOP PRN (13:54)
[2022-02-08] MEDS ORDERED: HYDROCORTISONE 1% CREAM 28 GM TUBE PR PRN (13:54)
--- NOTE | 2022-02-08 14:07 | DELIVERY NOTE ---
Delivery Note - Labor Labor: positive: Spontaneous, Augmented by ARM - Infant Delivery Method Delivery Method: positive: Spontaneous vaginal delivery - Presentation Presentation: positive: EMMA - left occiput anterior - Nuchal Cord Nuchal Cord: positive: Present - Amniotic Fluid Description Amniotic Fluid Description: positive: Clear - Episiotomy Type Episiotomy Type: positive: None - Laceration Laceration: positive: None - Delivery Outcome Delivery Outcome: positive: Livebirth - : positive: Placed in direct skin contact with mother, Stimulated, Warmed, Loret[place] used Sheldon sex: positive: Female - Cord Cord: positive: 3 vessels - Placenta Placenta: positive: Intact, Spontaneous - Estimated Blood Loss Estimated Blood Loss (in cc): 250 - Post Delivery Events Post Delivery Events: positive: No post delivery events - Delivery Comments (Free Text/Narrative) Delivery Comments (Free Text/Narrative): Labor: This 31yo @ 39.6wks gestation by 9.2wk U/S presented on 02/08/2022 with c/o contractions, leakage of fluid, and blood tinged vaginal discharge. Cervical exam was difficult secondary to pt discomfort and she was admitted to [facility] requesting epidural for pain management. At that time cervix was 6/80/-1 and vertex. AROM occurred and was noted to be a small amount of clear fluid. Normal labor course. FHR demonstrated Category I pattern throughout labor. Pt progressed to c/c/+1 @ 1252. : Normal SVB of viable female infant on 02/08/2022 @ 1333. Nuchal x 1 delivered through. The was placed on maternal abdomen, stimulated, dried, and placed skin to skin. 's were 8/9 at 1 and 5 minutes respectively. Pitocin administered via IV for hemostasis. The umbilical cord was allowed to stop pulsating at which time it was doubly clamped by CNM and cut by FOB. Cord blood was obtained. 3VC. Fundal massage and gentle cord traction applied for active management of the third stage of labor. Placenta delivered spontaneously and intact at 1339. EBL 250mL. Fourth stage: Uterine fundus firm and there is no excessive bleeding. The perineum, vagina, and cervix were inspected and noted to be intact. initiated. Family bonding well. Both mother and baby were left in stable condition.
[2022-02-08] MEDS: ACETAMINOPHEN 500 MG TABLET PO SCH ×2 (14:31→22:50)
[2022-02-08] MEDS: IBUPROFEN 800 MG TABLET PO SCH ×2 (14:31→22:50)
--- NOTE | 2022-02-08 17:17 | PROCEDURE REPORT ---
- HPI Current EDU 02/09/22 Gestation 39 Weeks and 6 Days 4 Para 1 Vital Signs Temperature 36.7 C 02/08/22 07:14 Heart Rate 78 02/08/22 07:14 Respiratory Rate 17 02/08/22 07:14 Blood Pressure 125/79 02/08/22 07:14 O2 Saturation 100 02/08/22 07:14 Temperature 36.7 C 02/08/22 07:53 Heart Rate 78 02/08/22 07:14 Respiratory Rate 17 02/08/22 07:14 Blood Pressure 125/79 02/08/22 07:14 O2 Saturation 100 02/08/22 07:14 If not protocol: Oxygen Flow, liters/minute - NST Procedure NST Procedure Start Date 02/08/22 Start Time 07:10 Stop Time 07:30 Vibroacoustic Stimulation Used No Patient States Movement Yes - Results and Plan Plan: NST reactive. FHR baseline 150s, moderate variability, + accels, no decels Contractions palpate moderate inconsistently with soft resting tone.
[2022-02-08] MEDS: DOCUSATE SODIUM 100 MG CAPSULE PO SCH (22:50)
[2022-02-09 08:20] VITALS: BP 104/54
[2022-02-09] MEDS: DOCUSATE SODIUM 100 MG CAPSULE PO SCH (08:34)
[2022-02-09] MEDS: ACETAMINOPHEN 500 MG TABLET PO SCH (08:34)
[2022-02-09] MEDS: IBUPROFEN 800 MG TABLET PO SCH ×2 (08:34→14:03)
--- NOTE | 2022-02-09 10:53 | DISCHARGE SUMMARY ---
Discharge Summary - HOSPITAL COURSE Hospital Course: Date of Admission: 02/08/2022 Date of Discharge: 02/09/2022 Diagnosis on Admission: 1. 31yo @ 39.6wks gestation by 7wk U/S 2. Active labor 3. GBS neg 4. FHR Category I Diagnosis on Discharge: 1. 31yo PPD#1 s/p TSVD viable female 2. 3. Normal recovery Brief History: She is a patient of [facility] who presented on 02/08/2022 with c/o contractions and bloody discharge in addition to possible small leakage of clear fluid. Cervix was 6/80/-1 and vertex and she was found to contract inconsistently. Epidural was placed per maternal request. She progressed spontaneously to deliver a viable female on 02/08/2022 at 1333 over intact perineum. Apgars were 8/9 at 1 and 5 minutes respectively. EBL 250mL. She has been doing well in her course. She is ambulating and tolerating and regular diet. She is urinating without difficulty and her lochia is normal. Her pain is well controlled with oral medications. She had a normal bowel movement early this morning without pain. She is without difficulty and bonding well with her baby. She will be discharged home today on day #1 with instructions to continue taking her vitamin while and to continue taking ibuprofen and tylenol over the counter as needed for pain management. She intends to follow up with myself at [facility] in 1 week for routine visit or sooner if needed. She has been given precautions to call if she has any worsening fevers, chills, abdominal pain, increased vaginal bleeding or foul smelling vaginal lochia. Physical exam: Normocephalic, atraumatic. Heart RRR w/o M/G/R, lungs CTAB, abdomen soft and nontender with fundus firm at U-1, perineum intact, light lochia rubra, bilateral LE's no edema. Mood is good. - ALLERGIES Allergies/Adverse Reactions: Allergies Allergy/AdvReac Type Severity Reaction Status Date / Time Penicillins Allergy Intermediate Edema Verified 12/08/21 18:31 - MEDICATIONS Home Medications: Ambulatory Orders Medication Instructions Recorded Confirmed Loperamide HCl [Imodium A-D] 2 mg PO QID PRN #12 tablet 07/21/21 Ondansetron Odt [Zofran] 4 mg TL Q6H PRN #15 tablet 07/21/21 Albuterol Sulf [Ventolin Hfa 1 - 2 puffs INH Q4HR PRN #1 each 12/08/21 Inhaler] Azithromycin See Taper PO DAILY #6 tablet 12/08/21 predniSONE [Deltasone] 40 mg PO DAILY 4 Days #8 tablet 12/08/21 - LABS Result Diagrams: 02/08/22 07:45
--- NOTE | 2022-02-09 11:20 | Discharge Plan ---
Discharge Plan Problem Reviewed?: Yes Disposition: Home, Self Care Condition: Good Diet: Regular Activity Restrictions: No Restrictions Shower Restrictions: No Driving Restrictions: No Weight Bearing: Full Weight Instruction Topics: Vaginal After No Smoking: If you smoke, Please STOP! Call for help. Follow-up with: Aurora Enciso CNM, ARNP [Provider Admit Priv/Credential] - 1 Week (Phone call with Aurora Enciso CNM/DHARA February 16 @ 1:15pm.)
--- NOTE | 2022-02-09 16:31 | Labor Flowsheet ---
Labor Flowsheet Datetime Report Generated by CPN: 02/09/2022 16:31 Datetime: 02/09/2022 08:13 VITAL SIGNS NBP Sys/Aviva/Mean (mmHg): 104 : 54 : 65 Pulse: 83 Datetime: 02/08/2022 15:15 Stage of : Recovery Respirations: 16 Temperature (C): 36.9 Temperature Route: Oral Datetime: 02/08/2022 14:04 SpO2 (%): 100 PAIN Pain Scale: 3 Pain Presence: Intermittent Pain Location: Back Datetime: 02/08/2022 13:30 UTERINE ACTIVITY Monitor Mode: External Frequency (min): 1-2 Quality: Strong Duration (sec): 60-90 Pattern: Normal: <= 5 Contractions in 10 Minutes Resting Tone (Palpate): Relaxed Contraction Comments: pushing with ctx ASSESSMENT A Monitor Mode: Telemetry FHR Baseline Rate : 145 Variability: Minimal - Undetectable to <=5 bpm Accelerations: None Decelerations: Variable Category: Category II Oxygen Method: Room Air Pushing Progress: with Pushing LaborFlag: Labor Datetime: 02/08/2022 13:15 Comments: variables with pushing. returns to baseline Datetime: 02/08/2022 12:57 STAGE 2 Pushing: Urge to Push Pushing Position: Pushing with Contractions Datetime: 02/08/2022 12:52 VAGINAL EXAM Dilatation (cm): 10.0 Station: 1 Exam by: mary harley cnm Datetime: 02/08/2022 12:45 FHR Baseline Changes: No Baseline Change Datetime: 02/08/2022 12:15 Monitor Interventions for FHR: Ultrasound Adjusted Datetime: 02/08/2022 12:02 Pain Coping: Talking Through Contractions Datetime: 02/08/2022 11:13 Effacement (%): 90 Cervix, Consistency: Soft Datetime: 02/08/2022 11:10 Patient Position/Activity: Left Lateral Patient Care Comments: peanut ball Datetime: 02/08/2022 11:02 Anesthesia Comments: T10 on right side. still feeling more pain on left. 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 catia us given Datetime: 02/08/2022 11:00 Provider Reviewed Strip: Yes COMMUNICATION Communication: Provider at Bedside Communication Comments: Mary Harley CNM Datetime: 02/08/2022 10:55 Pain Assessment Comments: DEGREASER OPERATOR at bedside. pain increasing on left side. Datetime: 02/08/2022 10:37 Vaginal Bleeding: None Cervix, Position: Midposition I/O Interventions: Do Cath Inserted Datetime: 02/08/2022 10:30 Monitor Interventions for UA: [place] Adjusted Datetime: 02/08/2022 09:31 Membrane Status: Ruptured Membranes Rupture Method: Artificial Amniotic Fluid Color: Clear Amniotic Fluid Amount: Small Datetime: 02/08/2022 09:20 PATIENT CARE IV/Blood Work: IV Bolus Started Epidural Procedure Other: Pump Started Datetime: 02/08/2022 09:05 Epidural Procedure: Test Dose Datetime: 02/08/2022 08:51 PROCEDURE TIME OUT Procedure Verify: Correct Patient Identity; Correct Side and Site are Marked; Accurate Procedure Co nsent Form; Agreement on Procedure to be Done; Correct Patient Position; Addressed Need to Administer Antibiotics or Fluids for Irrigation; Safety Precautions Based on Patient History or Medication Use ANESTHESIA Anesthesia Plans: Epidural Epidural Positioning: Sitting
== END 2022-02-09 15:25 | disposition home or self-care (01) | DRG 807 ==
LOC: WFO 06:58 → FBP 07:04 → WFO 07:32 → FBP 07:33
PROVIDERS: ADMIT Nurse Practitioner Obstetrics & Gynecology; ATTEND Nurse Practitioner Obstetrics & Gynecology
PROC: 10E0XZZ Delivery of Products of Conception, External Approach (ICD-10-PCS; principal; 2022-02-08)
PROC: 10907ZC Drainage of Amniotic Fluid, Therapeutic from Products of Conception, Via Natural or Artificial Opening (ICD-10-PCS; 2022-02-08)
DX: O69.81X0 Labor and delivery complicated by cord around neck, without compression, not applicable or unspecified (principal); Z37.0 Single live birth; Z3A.39 39 weeks gestation of pregnancy
CPT/HCPCS: 59025; 85025; 86850; 86900; 86901; 99215; A9270; J7120

== ENCOUNTER 2023-10-12 11:45 | Emergency (ER) | payer SELFPAY ==
[2023-10-12 12:18] VITALS: BP 136/92; O2SAT 100
[2023-10-12 12:37] LABS: BILIRUBIN,URINE SMALL (NEGATIVE); GLUCOSE, URINE (UA) NEGATIVE (NEGATIVE); KETONES,URINE (UA) 15 mg/dL (NEGATIVE); LEUKOCYTE ESTERASE, URINE TRACE (NEGATIVE); NITRITE,URINE NEGATIVE (NEGATIVE); OCCULT BLOOD,URINE NEGATIVE (NEGATIVE); PROTEIN,URINE NEGATIVE (NEGATIVE); UROBILINOGEN,URINE 0.2 (NORMAL) E.U./dL (NORMAL)
[2023-10-12 12:49] LABS: BASOPHILS # (AUTO) 0.1 10^3/uL (0.0-0.1); BASOPHILS % (AUTO) 1.1 %; EOSINOPHILS % (AUTO) 0.7 %; HCT - HEMATOCRIT 42.5 % (37.0-47.0); HGB - HEMOGLOBIN 14.2 g/dL (12.0-16.0); LYMPHOCYTES # (AUTO) 0.9 10^3/uL (1.5-3.5); LYMPHOCYTES % (AUTO) 15.4 %; MEAN CORPUSCULAR HEMOGLOBIN 34.4 pg (27.0-31.0); MEAN CORPUSCULAR HGB CONC 33.4 g/dL (32.0-36.0); MEAN CORPUSCULAR VOLUME 102.9 fL (81.0-99.0); MEAN PLATELET VOLUME 10.1 fL (7.9-10.8); MONOCYTES # (AUTO) 0.8 10^3/uL (0.0-1.0); NEUTROPHILS # (AUTO) 3.8 10^3/uL (1.5-6.6); NEUTROPHILS % (AUTO) 68.6 %; PLT - PLATELET COUNT 266 10^3/uL (130-450); RED BLOOD COUNT 4.13 10^6/uL (4.20-5.40); RED CELL DISTRIBUTION WIDTH 12.3 % (12.0-15.0); WHITE BLOOD COUNT 5.6 x10^3/uL (4.8-10.8)
[2023-10-12 12:58] LABS: CLARITY,URINE CLEAR (CLEAR); HCG UR QUAL NEGATIVE
[2023-10-12 13:02] LABS: ALBUMIN 4.3 g/dL (3.2-5.5); ALBUMIN/GLOBULIN RATIO 1.7 (1.0-2.2); BILIRUBIN,TOTAL 1.3 mg/dL (0.2-1.0); CALCIUM 9.7 mg/dL (8.5-10.3); CREATININE 0.7 mg/dL (0.6-1.3); POTASSIUM 3.6 mmol/L (3.5-4.5); TOTAL PROTEIN 6.9 g/dL (6.4-8.9)
[2023-10-12 13:13] LABS: BACTERIA,URINE Few /HPF (None Seen); RBC,URINE 0-5 /HPF (0-5); SQUAMOUS EPITHELIAL CELL,UR MOD Squamous (<= Few); WBC,URINE 0-3 /HPF (0-5)
--- NOTE | 2023-10-12 13:13 | ED Physician Documentation ---
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 Sensitivities are not available. 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 - Past Surgical History Past Surgical History: No - Present Medications Home Medications: Ambulatory Orders Medication Instructions Recorded Confirmed Loperamide HCl [Imodium A-D] 2 mg PO QID PRN #12 tablet 07/21/21 Ondansetron Odt [Zofran] 4 mg TL Q6H PRN #15 tablet 07/21/21 Albuterol Sulf [Ventolin Hfa 1 - 2 puffs INH Q4HR PRN #1 each 12/08/21 Inhaler] Azithromycin See Taper PO DAILY #6 tablet 12/08/21 predniSONE [Deltasone] 40 mg PO DAILY 4 Days #8 tablet 12/08/21 Sulfamethox/Trimeth 800/160 1 tablet PO BID 5 Days #10 tablet 10/12/23 [Bactrim Ds] - Allergies Allergies/Adverse Reactions: Allergies Allergy/AdvReac Type Severity Reaction Status Date / Time Penicillins Allergy Intermediate Edema Verified 10/12/23 13:02 - Social History Does the pt smoke?: No Smoking Status: Never smoker Does the pt drink ETOH?: Yes Does the pt have substance abuse?: No - Immunizations Immunizations are current?: No - POLST Patient has POLST: No PD ED PE NORMAL - Vitals Vital signs reviewed: Yes (hypertensive ) - General General: Alert and oriented X 3, No acute distress, Well developed/nourished - HEENT HEENT: Atraumatic, PERRL, EOMI - Respiratory Respiratory: No respiratory distress - Back Back: No CVA TTP, No spinal TTP, Other (mild tenderness to the lower lumbar paraspinous muscles. ) - Derm Derm: Normal color, No rash - Extremities Extremities: No deformity, No edema - Neuro Neuro: Alert and oriented X 3, dyeing machine tender 2-12 intact, No motor deficit, No sensory deficit, Normal speech Eye Opening: Spontaneous Motor: Obeys Commands Verbal: Oriented GCS Score: 15 - Psych Psych: Normal mood, Normal affect Results - Vitals Vitals: Vital Signs - 24 hr 10/12/23 12:13 Temperature 36.6 C Heart Rate 85 Respiratory 18 Rate Blood Pressure 136/92 H O2 Saturation 100 Oxygen O2 Source Room air - Labs Labs: Laboratory Tests 10/12/23 10/12/23 10/12/23 12:30 12:41 12:41 WBC 5.6 RBC 4.13 L Hgb 14.2 Hct 42.5 MCV 102.9 H MCH 34.4 H MCHC 33.4 RDW 12.3 Plt Count 266 MPV 10.1 Neut # (Auto) 3.8 Lymph # (Auto) 0.9 L Catron # (Auto) 0.8 Eos # (Auto) 0.0 Baso # (Auto) 0.1 Absolute Nucleated RBC 0.00 Nucleated RBC % 0.0 Sodium 135 Potassium 3.6 Chloride 100 L Carbon Dioxide 27 Anion Gap 8.0 BUN 7 Creatinine 0.7 Estimated GFR (MDRD) 97 Glucose 84 Calcium 9.7 Total Bilirubin 1.3 H AST 104 H ALT 58 Alkaline Phosphatase 82 Total Protein 6.9 Albumin 4.3 Globulin 2.6 Albumin/Globulin Ratio 1.7 Lipase 36 Urine Color DARK YELLOW Urine Clarity CLEAR Urine pH 6.0 Ur Specific Wrens 1.015 Urine Protein NEGATIVE Urine Glucose (UA) NEGATIVE Urine Ketones 15 H Urine Occult Blood NEGATIVE Urine Nitrite NEGATIVE Urine Bilirubin SMALL H Urine Urobilinogen 0.2 (NORMAL) Ur Leukocyte Esterase TRACE H Urine RBC 0-5 Urine WBC 0-3 Ur Squamous Epith Cells MOD Squamous H Urine Bacteria Few Ur Microscopic Review INDICATED Urine Culture Comments NOT INDICATED Urine HCG, Qual NEGATIVE PD Medical Decision Making - ED course Complexity details: reviewed results, re-evaluated patient, considered differential, d/w patient Reviewed Lab Results: We reviewed a complete blood count showing a normal white blood cell count normal hemoglobin hematocrit and platelets chemistry showed normal electrolytes normal kidney and liver function with the exception of mildly elevated AST. Urinalysis shows ketones in the urine small bilirubin trace leukocyte Estrace and few bacteria. The specimen did not make the grade 4 culture with moderate squamous cells. I reviewed the patient's history and I have elected to treat recurrence of urinary tract infection. She does have a history of alcohol consumption likely related to the mild elevation in the AST. Her hemogram was unremarkable consistent with a benign process. She did request testing for STD. ED course: Brandon Aguilar is a 33-year-old female who had urinary tract infection 1 month ago she seemed to have improvement with the use of Macrobid and she has now had the symptoms back again for the past several days. We have processed the uterine specimen that did not make the grade for culture we will empirically treat with Septra. A specimen is pending for STD. Departure - Departure Disposition: 01 Home, Self Care Clinical Impression: Urinary tract infection Qualifiers: Urinary tract infection type: acute cystitis Hematuria presence: without hematuria Qualified Code(s): N30.00 - Acute cystitis without hematuria Condition: Stable Instructions: ED UTI Cystitis Female Follow-Up: MARY COOK MD [Physician No Access] - Prescriptions: Sulfamethox/Trimeth 800/160 [Bactrim Ds] 1 tablet PO BID 5 Days #10 tablet Comments: Barry, today it looks like you still have some evidence of urinary tract infection and we would like to change her antibiotic to sulfamethoxazole trimethoprim. This is concentrated in the urine and usually does a good job of treating urinary tract infection. The urine specimen provided today did not make the grade for culture. (too many skin cells) A test for chlamydia and GC is pending.The antibiotic has been E scribed to the [facility] in [place]. Forms: PCP List Discharge Date/Time: 10/12/23 13:22
[2023-10-12 19:51] LABS: CHLAMYDIA TRACHOMATIS DNA NEGATIVE (NEGATIVE); NEISSERIA GONORRHOEAE DNA NEGATIVE (NEGATIVE); TRICHOMONAS VAGINALIS DNA NEGATIVE (NEGATIVE)
== END 2023-10-12 13:22 | disposition home or self-care (01) ==
LOC: ED 11:45
DX: N30.00 Acute cystitis without hematuria (principal); Z87.440 Personal history of urinary (tract) infections; Z79.899 Other long term (current) drug therapy
CPT/HCPCS: 36415; 80053; 81001; 81003; 81025; 83690; 85025; 87086; 87491; 87591; 87661; 99283; 99284